=== PATIENT | male | born 1950 | race Two or more races ===

== ENCOUNTER 2024-03-09 07:57 | Emergency (ER) | payer MEDICARE, OTHER ==
[~2024-03-09] VITALS: Ht 165.1 cm; Wt 73.8 kg
[2024-03-09] MEDS: LIDOCAINE VISCOUS 2% 15ML UD MT ONE (09:05)
[2024-03-09] MEDS: GLUCAGON EMERG KIT 1mg/1ml IM ONE (09:32)
[2024-03-09 09:49] VITALS: BP 107/48; PULSE 95; RESP 17; TEMP 98; O2SAT 95
[2024-03-09] MEDS ORDERED: PANT40TA2 PO (10:06)
[2024-03-09] MEDS ORDERED: LIDO2SOL26 MT (10:06)
== END 2024-03-09 10:13 | disposition home or self-care (01) ==
LOC: ER 07:57
DX: R09.A2 Foreign body sensation, throat (principal); I10 Essential (primary) hypertension
CPT/HCPCS: 70360; 96372; 99283; J1610

== ENCOUNTER 2024-03-27 13:49 | Emergency (ER) | payer MEDICARE, OTHER ==
[~2024-03-27] VITALS: Ht 165.1 cm; Wt 79.5 kg
[~2024-03-27 13:49] MED LIST: AMLO1TAB22 PO; ASPI81CH59 PO; ATEN-60 PO; LIDO2SOL26 MT; LOSA-533 PO; PANT40TA2 PO; SIMV10TA20 PO
[2024-03-27 14:29] VITALS: BP 120/68; PULSE 76; RESP 18; O2SAT 96
[2024-03-27 15:24] LABS: Alanine Aminotransferase 20 U/L (7-40); Alkaline Phosphatase 75 U/L (46-116); Anion Gap 5 (5-15); Aspartate Aminotransferase 22 U/L (13-40); BUN/Creatinine Ratio 13.3 (10.0-20.0); Bilirubin, Total 4.1 mg/dL (0.2-1.0); Blood Urea Nitrogen 18 mg/dL (9-23); Calcium 9.4 mg/dL (8.7-10.4); Carbon Dioxide 27 mmol/L (20-30); Chloride 106 mmol/L (98-107); Glucose 115 mg/dL (74-106); Potassium 4.2 mmol/L (3.5-5.1); Sodium 138 mmol/L (136-145); Total Protein 6.2 g/dL (5.7-8.2)
[2024-03-27 15:42] LABS: Urine Bacteria FEW /hpf (None Seen); Urine Blood Negative /uL (Negative); Urine Clarity Clear (Clear); Urine Color Yellow (Yellow); Urine Hyaline Cast FEW /lpf (0 - 2); Urine Mucus FEW (None Seen); Urine Protein, UAD 1+ (Negative); Urine Specific Gravity 1.021 (1.001-1.035); Urine Urobilinogen Normal (Negative); Urine WBC 9 /hpf (0 - 3); Urine pH 5.5 (5.0-9.0)
[2024-03-27 18:36] LABS: Basophils # (auto) 0.1 10 ^3/uL (0-0.2); Basophils % (auto) 0.8 % (0.0-2.0); Eosinophils # (auto) 0.1 10 ^3/uL (0-0.8); Eosinophils % (auto) 1.8 % (0.0-7.0); Hematocrit 17.8 % (41.0-53.0); Lymphocytes % (auto) 15.4 % (10.0-50.0); Mean Corpuscular Hemoglobin 51.4 pg (28.0-32.0); Mean Corpuscular Volume 136.1 fL (80.0-100.0); Monocytes # (auto) 0.3 10 ^3/uL (0-1.3); Monocytes % (auto) 5.3 % (0.0-12.0); Neutrophils # (auto) 5.1 10 ^3/uL (1.6-8.6); Neutrophils % (auto) 76.7 % (37.0-80.0); Nucleated Red Blood Cells % 0.2 %; Platelet Count (auto) 208 10^3/uL (140-450); Red Blood Cells 1.31 10^6/uL (4.5-5.90); White Blood Cell 6.6 10^3/uL (4.4-10.8)
[2024-03-27 18:56] LABS: Mean Corpuscular Hgb Conc. 37.7 g/dL (32.0-36.0); Red Cell Distribution Width 23.6 % (11.8-14.3)
[2024-03-27 18:58] LABS: Hemoglobin 6.7 g/dL (13.5-17.5)
[2024-03-27 19:31] LABS: Anisocytosis Slight; Macrocytosis Marked; Platelet Estimate Adequate
[2024-04-04] MEDS ORDERED: FURO1TAB31 PO (15:06)
[2024-04-04] MEDS ORDERED: PRED20TA2 PO (15:06)
[2024-04-04] MEDS ORDERED: SACU1TAB PO (15:06)
== END 2024-03-27 19:13 | disposition left against medical advice (07) ==
LOC: ER 13:49
DX: D64.9 Anemia, unspecified (principal); I10 Essential (primary) hypertension; Z79.899 Other long term (current) drug therapy; Z88.8 Allergy status to other drugs, medicaments and biological substances
CPT/HCPCS: 36415; 80053; 81001; 85025; 86850; 86900; 86901